=== PATIENT | female | born 1990 | race Caucasian/White ===

== ENCOUNTER 2016-07-15 12:43 | Outpatient (CLI) | payer OTHER | END 2016-07-15 12:44 | disposition home or self-care (01) | DX: Z11.3 Encounter for screening for infections with a predominantly sexual mode of transmission (principal) ==

== ENCOUNTER 2016-07-22 11:17 | Outpatient (CLI) | payer OTHER | END 2016-07-22 11:18 | disposition home or self-care (01) | DX: Z36 Encounter for antenatal screening of mother (principal) ==

== ENCOUNTER 2016-09-09 12:45 | Outpatient (CLI) | payer OTHER, MEDICAID | END 2016-09-09 12:46 | disposition home or self-care (01) | DX: Z34.82 Encounter for supervision of other normal pregnancy, second trimester (principal) ==

== ENCOUNTER 2016-10-28 11:25 | Outpatient (CLI) | payer MEDICAID | END 2016-10-28 11:26 | disposition home or self-care (01) | LOC: LAB 11:25 | PROVIDERS: ATTEND Obstetrics & Gynecology | DX: Z36 Encounter for antenatal screening of mother (principal) | CPT/HCPCS: 36415; 82950; 85018; 86850 ==

== ENCOUNTER 2017-01-03 08:00 | Outpatient (CLI) | payer MEDICAID, OTHER | END 2017-01-03 08:01 | disposition home or self-care (01) | LOC: LAB.R 08:00 | PROVIDERS: ATTEND Obstetrics & Gynecology | DX: Z34.83 Encounter for supervision of other normal pregnancy, third trimester (principal) | CPT/HCPCS: 87081 ==

== ENCOUNTER 2017-02-10 19:51 | Emergency (ER) | payer MEDICAID ==
[2017-02-10 20:39] VITALS: BP 117/79
--- NOTE | 2017-02-10 21:49 | ED Physician Documentation ---
PD HPI URI - Stated complaint Stated Complaint: COUGH/FEVER - Chief complaint Chief Complaint: Fever - History obtained from History obtained from: Patient - History of Present Illness Timing - onset: How many days ago (few) Timing duration: Days (she had had sinus infection left maxillary couple weeks ago and Rx with Augmentin. Got allergic rash and was stopped, but continued with steroids. Seemed improved and then with recurrent symptoms the past few days and now also cough with sputum production, mild dyspnea/wheeze feeling.) Timing details: Gradual onset Associated symptoms: Fever (the past 2 days), Sinus pain, Productive cough, Dyspnea. No: Sore throat, Chest pain, NVD Contributing factors: No: Sick contact, Travel, Immunocompromised Similar symptoms before: Diagnosis (sinus infection recently) Recently seen: Other ( due to breech presentation 3 weeks ago, healing okay. She is not .) Review of Systems Constitutional: reports: Fever, Chills Nose: reports: Congestion, Sinus pressure / pain Throat: denies: Sore throat Cardiac: denies: Chest pain / pressure Respiratory: reports: Dyspnea, Cough GI: denies: Nausea, Vomiting, Diarrhea Skin: denies: Rash PD PAST MEDICAL HISTORY - Past Medical History Cardiovascular: None Respiratory: None Neuro: None Endocrine/Autoimmune: None - Past Surgical History Past Surgical History: No - Present Medications Home Medications: Ambulatory Orders Medication Instructions Recorded Confirmed Albuterol Sulfate [Proair Hfa 2 puffs IH QID #1 hfa.aer.ad 02/10/17 Inhaler] Azithromycin [Zithromax] 250 mg PO DAILY #4 tablet 02/10/17 Dexamethasone [Decadron] 4 mg PO DAILY #5 tablet 02/10/17 guaiFENesin/CODEINE [Robitussin AC] 5 - 10 ml PO Q6H PRN #120 ml 02/10/17 - Allergies Allergies/Adverse Reactions: Allergies Allergy/AdvReac Type Severity Reaction Status Date / Time amoxicillin trihydrate * Allergy Hives Verified 02/10/17 20:39 [From Augmentin] potassium clavulanate * Allergy Hives Verified 02/10/17 20:39 [From Augmentin] - Social History Does the pt smoke?: No Smoking Status: Never smoker Does the pt drink ETOH?: No Does the pt have substance abuse?: No - Immunizations Immunizations are current?: Yes PD ED PE NORMAL - Vitals Vital signs reviewed: Yes - General General: Alert and oriented X 3, No acute distress, Well developed/nourished - HEENT HEENT: Ears normal, Pharynx benign, Other (some sinus tender left maxilla) - Neck Neck: Supple, no meningeal sign, No adenopathy - Cardiac Cardiac: RRR, No murmur - Respiratory Respiratory: Clear bilaterally - Derm Derm: Normal color, Warm and dry, No rash - Neuro Neuro: Alert and oriented X 3, No motor deficit, Normal speech, Other (normal facial movement) Results - Vitals Vitals: Oxygen O2 Source Room air PD MEDICAL DECISION MAKING - ED course Complexity details: considered differential, d/w patient Departure - Departure Disposition: Home, Self Care Clinical Impression: Upper respiratory infection Qualifiers: URI type: unspecified URI Qualified Code(s): J06.9 - Acute upper respiratory infection, unspecified Condition: Stable Record reviewed to determine appropriate education?: Yes Instructions: ED Upper Resp Infec Abx Tx Follow-Up: Radha David PA-C [Primary Care Provider] - Prescriptions: Dexamethasone [Decadron] 4 mg PO DAILY #5 tablet Albuterol Sulfate [Proair Hfa Inhaler] 2 puffs IH QID #1 hfa.aer.ad guaiFENesin/CODEINE [Robitussin AC] 5 - 10 ml PO Q6H PRN #120 ml PRN Reason: Cough Azithromycin [Zithromax] 250 mg PO DAILY #4 tablet Comments: Drink lots of fluids. Use the albuterol inhaler 2 puffs 4 times a day for a week or so to help with cough and trouble breathing. Azithromycin antibiotic for total of 5 days daily. Dexamethasone steroid daily for 5 days. Use the codeine cough medicine if needed for cough. Recheck if not improving over the next few days. Discharge Date/Time: 02/10/17 22:21
[2017-02-10] MEDS ORDERED: BENZONATATE 100 MG CAPSULE PO STA (21:59)
[2017-02-10] MEDS ORDERED: DEXAMETHASONE 10 MG/ML VIAL PO STA (21:59)
[2017-02-10] MEDS ORDERED: guaiFENesin/CODEINE 5 ML UDC PO STA ×2 (21:59→22:00)
[2017-02-10] MEDS ORDERED: AZITHROMYCIN 250 MG TABLET PO STA (21:59)
[2017-02-10] MEDS ORDERED: BENZONATATE 100 MG CAPSULE PO ONE (22:12)
[2017-02-10] MEDS ORDERED: AZITHROMYCIN 250 MG TABLET PO ONE (22:13)
[2017-02-10] MEDS ORDERED: DEXAMETHASONE 10 MG/ML VIAL ONE (22:13)
[2017-02-10] MEDS ORDERED: guaiFENesin/CODEINE 5 ML UDC ONE (22:14)
[2017-02-10] MEDS ORDERED: CHERRY SYRUP 10 ML UDC PO ONE (22:14)
== END 2017-02-10 22:21 | disposition home or self-care (01) ==
LOC: ED 19:51
DX: J06.9 Acute upper respiratory infection, unspecified (principal)
CPT/HCPCS: 99282; 99283; A9270